=== PATIENT | female | born 1950 | race African-American/Black ===

== ENCOUNTER 2016-03-06 06:24 | Emergency (ER) | payer MEDICARE, BC ==
[~2016-03-06] VITALS: Ht 162.6 cm; Wt 75.0 kg
[2016-03-06 06:30] VITALS: Ht 162.6 cm; Wt 75.0 kg
[2016-03-06] MEDS ORDERED: IPRATROPIUM (NEB) 0.5 MG/2.5 ML AMP INH STA (06:32)
[2016-03-06] MEDS ORDERED: ALBUTEROL 0.5% (NEB) 2.5 MG/0.5 ML AMP INH STA (06:32)
[2016-03-06] MEDS ORDERED: METHYLPREDNISOLONE 125 MG INJ IV STA (06:32)
--- NOTE | 2016-03-06 06:35 | ERD ---
ER Documentation Chief Complaint Date/Time DATE: 03/06/16 TIME: 06:34 Chief Complaint BIB RA FOR SOB. HX OF BRONCHITIS HPI 65-year-old female history of hypertension, dyslipidemia, asthma/COPD, unknown type of heart disease and chronic nicotine abuse presents to the emergency department via rescue ambulance complaining of a 3 day history of worsening shortness of breath, wheezing, cough productive of clear sputum, body aches and subjective fevers and chills. Denies chest pain or palpitations. No leg pain or swelling. Mild nasal congestion and clear rhinorrhea but no odynophagia. Symptoms not relieved by albuterol inhaler. No exacerbating factors.Denies neck or back pain. No abdominal pain, nausea, vomiting or diarrhea. No dysuria , polyuria, hematuria or flank pain. No headache or neck pain. Denies visual changes, focal weakness or numbness. Symptoms not relieved by albuterol inhaler. No exacerbating factors. ROS All systems reviewed and are negative except as per history of present illness. Medications Home Meds Active Scripts Azithromycin* (Azithromycin*) 250 Mg Tablet, 250 MG PO DAILY, #4 TAB Prov:ROMULO MORELAND MD 03/06/16 Prednisone (Prednisone) 20 Mg Tab, 40 MG PO DAILY for 4 Days, TAB Prov:ROMULO MORELAND MD 03/06/16 Budesonide (Pulmicort Flexhaler) 180 Mcg Aer.pow.ba, 1 PUFF INHALATION BID, #1 EA Prov:ROMULO MORELAND MD 03/06/16 Albuterol Sulfate* (Proair HFA*) 8.5 Gm Hfa.aer.ad, 2 PUFF INH Q4H Y for WHEEZING AND SOB, #1 INHALER Prov:ROMULO MORELAND MD 03/06/16 Reported Medications Gabapentin* (Gabapentin*) 100 Mg Capsule, 100 MG PO BID, #90 CAP 03/06/16 Ranitidine Hcl* (Ranitidine Hcl*) 150 Mg Tablet, 150 MG PO HS, #30 TAB 03/06/16 Lovastatin* (Lovastatin*) 20 Mg Tablet, 20 MG PO HS, TAB 03/06/16 Hydrochlorothiazide* (Hydrochlorothiazide*) 25 Mg Tab, 25 MG PO DAILY, #30 TAB 03/06/16 Nifedipine* (Nifedipine ER*) 60 Mg Tablet.sa, 60 MG PO DAILY, TAB.SA 03/06/16 Allergies Allergies: Coded Allergies: No Known Allergy (Unverified , 03/06/16) PMhx/Soc Reviewed in chart. As per HPI. History of Surgery: Yes (Appendectomy) Anesthesia Reaction: No Hx Neurological Disorder: No Hx Respiratory Disorders: Yes (Asthma/COPD) Hx Cardiac Disorders: Yes (Unknown) Hx Psychiatric Problems: No Hx Miscellaneous Medical Probl: Yes (Dyslipidemia) Hx Alcohol Use: No Hx Substance Use: No Hx Tobacco Use: Yes Smoking Status: Current every day smoker FmHx No stroke, cancer or sudden cardiac Physical Exam Vitals Vital Signs Date Time Temp Pulse Resp B/P Pulse Ox O2 Delivery O2 Flow Rate FiO2 03/06/16 07:37 98.1 100 18 108/74 100 Room Air 03/06/16 06:44 12.0 03/06/16 06:37 102 22 100 Non Rebreather Mask 12.0 03/06/16 06:37 Simple Mask 6 03/06/16 06:34 Simple Mask 6.0 03/06/16 06:30 98.9 108 18 125/83 100 03/06/16 06:29 98.9 108 22 128/53 95 Physical Exam Const: Alert, mild respiratory distress. Head: Atraumatic Eyes: Normal Conjunctiva. Pupils equal reactive to light, extraocular movements are intact. ENT: Normal External Ears, Nose and Mouth. Neck: Full range of motion. No lymphadenopathy or masses. JVD. Resp: Breath sounds markedly diminished bilaterally with expiratory wheezing and prolonged expiratory phase. No use of accessory muscles of respiration. Cardio: Tachycardic, regular rate and rhythm, no murmurs Abd: Soft, non tender, non distended. Normal bowel sounds. Obese. No rebound or guarding. No masses or abnormal pulsations. Skin: No petechiae or rashes Back: No midline or flank tenderness Ext: No cyanosis. 1+ pretibial edema. Neur: Awake and alert. Cranial nerves II through XII are grossly intact. No focal deficit observed. Psych: Normal Mood and Affect. Patient does not appear anxious or depressed. Result Diagram: 03/06/1640 03/06/16 0640 Results 24 hrs Laboratory Tests Test 03/06/16 06:40 Activated Partial Thromboplast Time 29.7Sec Alanine Aminotransferase (ALT/SGPT) 21IU/L Albumin 4.1g/dl Albumin/Globulin Ratio 1.10 Alkaline Phosphatase 108IU/L Anion Gap 14 Aspartate Amino Transf (AST/SGOT) 23IU/L B-Type Natriuretic Peptide 135PG/ML Basophils # 0.010^3/ul Basophils % 0.3% Blood Morphology Comment Blood Urea Nitrogen 11mg/dl Calcium Level 9.4mg/dl Carbon Dioxide Level 33mmol/L Chloride Level 97mmol/L Creatinine 0.89mg/dl Direct Bilirubin 0.00mg/dl Eosinophils # 0.110^3/ul Eosinophils % 0.8% Globulin 3.70g/dl Glucose Level 107mg/dl Hematocrit 41.2% Hemoglobin 14.2g/dl INR International Normalized Ratio 0.96 Indirect Bilirubin 0.8mg/dl Lymphocytes # 1.710^3/ul Lymphocytes % 25.8% Mean Corpuscular Hemoglobin 28.5pg Mean Corpuscular Hemoglobin Concent 34.5g/dl Mean Corpuscular Volume 82.5fl Mean Platelet Volume 8.4fl Monocytes # 0.810^3/ul Monocytes % 12.6% Neutrophils # 3.910^3/ul Neutrophils % 60.5% Nucleated Red Blood Cells # 0.010^3/ul Nucleated Red Blood Cells % 0.0/100WBC Platelet Count 51480^3/UL Potassium Level 3.5mmol/L Prothrombin Time 12.8Sec Prothrombin Time Ratio 1.0 Red Blood Count 5.0010^6/ul Red Cell Distribution Width 15.0% Sodium Level 140mmol/L Total Bilirubin 0.8mg/dl Total Protein 7.8g/dl Troponin I < 0.012ng/ml White Blood Count 6.510^3/ul Current Medications Medications (Trade) Dose Ordered Sig/Valentin Route PRN Reason Start Time Stop Time Status Last Admin Dose Admin Albuterol (Proventil 0.5% (Neb)) 15 mg ONCE STAT INH 03/06/16 06:32 03/06/16 06:35 DC 03/06/16 06:36 Ipratropium Pierz (Atrovent 0.02% (Neb)) 1 mg ONCE STAT INH 03/06/16 06:32 03/06/16 06:35 DC 03/06/16 06:36 Methylprednisolone Sodium Succinate (Solu-Medrol) 125 mg ONCE STAT IV 03/06/16 06:32 03/06/16 06:35 DC 03/06/16 06:44 Azithromycin (Zithromax) 500 mg ONCE ONCE PO 03/06/16 08:30 03/06/16 08:31 RHYTHM STRIP INTERPRETATION: Time: 06:20. Sinus tachycardia. Ventricular 102. No ectopy. Indication: Shortness of breath. EKG: TIME: 06:37. Sinus tachycardia. Ventricular rate 106. Normal CT and QRS. Left axis deviation. No acute ST T-wave changes. No ectopy. EP Interpretation: Abnormal EKG. IMAGING: PROCEDURE: XR Chest. CLINICAL INDICATION: SOB TECHNIQUE: Portable single view of the chest COMPARISON: None. FINDINGS: The heart size is top normal. The aorta is slightly ectatic and calcified. No acute infiltrate, pleural effusion, or overt congestive heart failure is seen. IMPRESSION: Top normal heart size. Aortic atherosclerosis. RPTAT: [facility] Physician Breonna Date Time Electronically viewed and signed by Leslie Townsend Physician on 03/06/2016 07 :03 LE/ Procedures/MDM DOCUMENTS REVIEWED: ED nurse, no prior records available. EMS report. ED COURSE: IV saline lock. Solu-Medrol 125 mg IV. Nebulized albuterol 15 mg/ Atrovent 1 mg. REEXAMINATION/REEVALUATION: Time: 08:10. Doing well. No shortness of breath. Markedly increased breath sounds bilaterally without residual wheezing. O2 saturation 100% on room air. MEDICAL DECISION MAKIN-year-old female history of hypertension, dyslipidemia, asthma/COPD, unknown type of heart disease and chronic nicotine abuse presents to the emergency department via rescue ambulance complaining of a 3 day history of worsening shortness of breath, wheezing, cough productive of clear sputum, body aches and subjective fevers and chills. Presentation consistent with acute asthma/COPD exacerbation and bronchitis. Influenza is negative. No radiographic evidence of pneumonia, pneumothorax or congestive heart failure. Doubt pulmonary embolism. Stable for discharge with precautionary instructions, inhaled beta agonist, inhaled and oral corticosteroids and a short course of antibiotics. Counseled patient regarding diagnostic workup, diagnosis and need for followup. Understands to return to ED if symptoms recur, worsen or any other concerns. Smoking Cessation Therapy: Pt. was lectured for greater than 3 minutes on the health risks of continued smoking and the benefits of cessation. Departure Diagnosis: Primary Impression: Acute exacerbation of COPD with asthma Additional Impressions: Acute bronchitis Bronchitis organism: unspecified organism Qualified Code: J20.9 - Acute bronchitis, unspecified organism Hypertension Hypertension type: essential hypertension Qualified Code: I10 - Essential hypertension Hyperlipidemia Hyperlipidemia type: unspecified Qualified Code: E78.5 - Hyperlipidemia, unspecified hyperlipidemia type Nicotine abuse Condition: Stable Patient Instructions: Acute Bronchitis, Chronic Lung Disease: Tips for Quitting Smoking , Copd Flare, Getting Support for Quitting Smoking, Health Effects of Smoking ROMULO MORELAND MD Mar 06, 2016 06:35
[2016-03-06 07:03] LABS: BASOPHILS % 0.3 % (0.0-2.0); EOSINOPHILS # 0.1 10^3/ul (0.0-0.5); EOSINOPHILS % 0.8 % (0.0-7.0); HEMATOCRIT 41.2 % (37.0-47.0); HEMOGLOBIN 14.2 g/dl (12.0-16.0); LYMPHOCYTES # 1.7 10^3/ul (0.8-2.9); LYMPHOCYTES % 25.8 % (15.0-51.0); MEAN CORPUSCULAR HEMOGLOBIN 28.5 pg (29.0-33.0); MEAN CORPUSCULAR HGB CONC 34.5 g/dl (32.0-37.0); MEAN CORPUSCULAR VOLUME 82.5 fl (82.0-101.0); MEAN PLATELET VOLUME 8.4 fl (7.4-10.4); MONOCYTE # 0.8 10^3/ul (0.3-0.9); MONOCYTES % 12.6 % (0.0-11.0); NEUTROPHIL # 3.9 10^3/ul (1.6-7.5); NEUTROPHILS % 60.5 % (39.0-77.0); PLATELET COUNT 255 10^3/UL (140-440); UNCORRECTED WBC 6.5 10^3/ul (4.8-10.8); WHITE BLOOD COUNT 6.5 10^3/ul (4.8-10.8)
--- NOTE | 2016-03-06 07:04 | RADRPT ---
PROCEDURE: XR Chest. CLINICAL INDICATION: SOB TECHNIQUE: Portable single view of the chest COMPARISON: None. FINDINGS: The heart size is top normal. The aorta is slightly ectatic and calcified. No acute infiltrate, pl eural effusion, or overt congestive heart failure is seen. IMPRESSION: Top normal heart size. Aortic atherosclerosis. RPTAT: [facility] Leslie Townsend, Physician Date Time Electronically viewed and signed by Leslie Townsend, Physician on 03/06/2016 07:03 LE/
[2016-03-06 07:07] LABS: ALBUMIN 4.1 g/dl (3.3-4.9); CHLORIDE 97 mmol/L (97-110)
[2016-03-06 07:08] LABS: INR 0.96; POTASSIUM 3.5 mmol/L (3.5-5.1); PROTIME 12.8 Sec (12.2-14.2); SODIUM 140 mmol/L (135-144)
[2016-03-06] MEDS ORDERED: RANI150T5 PO (07:08)
[2016-03-06] MEDS ORDERED: LOVA20TA PO (07:08)
[2016-03-06] MEDS ORDERED: NIFE60TA7 PO (07:08)
[2016-03-06] MEDS ORDERED: HYD25 PO (07:08)
[2016-03-06 07:09] LABS: PARTIAL THROMBOPLASTIN TIME 29.7 Sec (25.0-35.0)
[2016-03-06] MEDS ORDERED: GABA100C14 PO (07:09)
[2016-03-06 07:10] LABS: ALANINE AMINOTRANSFERASE 21 IU/L (13-69); ALKALINE PHOSPHATASE 108 IU/L (42-121); ANION GAP 14 (8-16); ASPARTATE AMINO TRANSFERASE 23 IU/L (15-46); BILIRUBIN,INDIRECT 0.8 mg/dl (0-1.1); BILIRUBIN,TOTAL 0.8 mg/dl (0.2-1.3); BLOOD UREA NITROGEN 11 mg/dl (7-20); CARBON DIOXIDE 33 mmol/L (21-31); CONDITION 1; CREATININE 0.89 mg/dl (0.44-1.00); GLUCOSE 107 mg/dl (70-220); TOTAL PROTEIN 7.8 g/dl (6.1-8.1)
[2016-03-06 07:11] LABS: CALCIUM 9.4 mg/dl (8.4-10.2); LH ANALYZER COMMENTS 1
[2016-03-06 07:19] LABS: B-TYPE NATRIURETIC PEPTIDE 135 PG/ML (0-125)
[2016-03-06 07:30] LABS: TROPONIN-I < 0.012 ng/ml (0.00-0.12)
[2016-03-06 07:37] VITALS: BP 108/74; PULSE 100; RESP 18; TEMP 98.1
[2016-03-06] MEDS ORDERED: ALBU8.5H3 INH (08:12)
[2016-03-06] MEDS ORDERED: AZIT250T6 PO (08:17)
[2016-03-06] MEDS ORDERED: PULM180 INHALATION (08:17)
[2016-03-06] MEDS ORDERED: PRED20 PO (08:17)
[2016-03-06] MEDS ORDERED: AZITHROMYCIN 250 MG TAB PO ONE (08:30)
== END 2016-03-06 08:26 | disposition home or self-care (01) ==
LOC: E/R 06:24
DX: J44.1 Chronic obstructive pulmonary disease with (acute) exacerbation (principal); J45.901 Unspecified asthma with (acute) exacerbation; J20.9 Acute bronchitis, unspecified; I10 Essential (primary) hypertension; E78.5 Hyperlipidemia, unspecified; F17.210 Nicotine dependence, cigarettes, uncomplicated
CPT/HCPCS: 36415; 71010; 80053; 83880; 84484; 85025; 85610; 85730; 87400; 94644; 96374; 99285; J2930; 93005